=== PATIENT | female | born 1975 | race Caucasian/White ===

== ENCOUNTER 2020-06-29 10:53 | Emergency (ER) | payer SELFPAY ==
--- NOTE | ~2020-06-29 | XR_ITS ---
EXAMINATION: XR ankle LT min 3V, XR foot LT min 3V DATE: 06/29/2020 11:28 INDICATION: Left foot and ankle pain post injury TECHNIQUE: 1. Anteroposterior, mortise, additional oblique and lateral view of the left ankle were obtained. 2. Dorsoplantar, two oblique and lateral views of the left foot were obtained. COMPARISON: None. FINDINGS: Alignment of the foot and ankle is normal. No fracture or osteochondral lesion. Joint spaces are well maintained. No ankle joint effusion. Soft tissue swelling about the lateral malleolus. IMPRESSION: 1. No osseous abnormality at the left foot or ankle. Reviewed, dictated and finalized at location A. [place] RECEIVING CLERK IMPRESSION: 1. No osseous abnormality at the left foot or ankle.
[2020-06-29 10:59] VITALS: BP 146/87; PULSE 95; RESP 22; TEMP 36.8; O2SAT 100
[2020-06-29] MEDS: HYDROcodone/acetaminophen (*CRX) 5-325 MG TABLET 1 TAB PO (11:34)
--- NOTE | 2020-06-29 13:06 | ED.GENADULT ---
HPI - General Adult General Chief complaint: Extremity Injury, Lower <Alberto Kemp PA-C - Last Filed: 06/29/20 15:15> Stated complaint: Left ankle pain <Alberto Kemp PA-C - Last Filed: 06/29/20 15:15> Time Seen by Provider: 06/29/20 10:59 <Alberto Kemp PA-C - Last Filed: 06/29/20 15:15> Source: patient <ROSE MARIE Light Last Filed: 06/29/20 15:15> Mode of arrival: ambulatory <ROSE MARIE Light Last Filed: 06/29/20 15:15> Limitations: no limitations <ROSE MARIE Light Last Filed: 06/29/20 15:15> History of Present Illness HPI narrative: Patient presents with chief complaint of pain after inverting her left ankle while trying to carry a recliner across the line. Patient states that she does not have any other areas of pain but she has swelling to the lateral malleolus and pain to the dorsal aspect of her left ankle. Patient states she is able to wiggle her toes but it is very painful. Patient reports severe pain with weightbearing. Patient denies any other injuries. Patient reports allergy to Aleve but states she can take ibuprofen and other NSAIDs without issue. Patient denies chance of due to hysterectomy and tubal ligation <Alberto Kemp PA-C - Last Filed: 06/29/20 15:15> Related Data Allergies/adverse reactions: Allergies Allergy/AdvReac Type Severity Reaction Status Date / Time Sulfa (Sulfonamide Allergy Unknown Verified 06/29/20 11:02 Antibiotics) naproxen [From Aleve] AdvReac Other Verified 06/29/20 13:09 <ROSE MARIE Light Last Filed: 06/29/20 15:15> Review of Systems Review of Systems: Narrative: CONSTITUTIONAL: Denies fever, chills, or sweats. EYES: Denies visual changes, redness, or discharge. ENT: Denies rhinorrhea, congestion, sore throat, or otalgia. CARDIOVASCULAR: Denies chest pain, palpitations, or edema. RESPIRATORY: Denies cough or dyspnea. GASTROINTESTINAL: Denies abdominal pain, nausea, vomiting, or diarrhea. GENITOURINARY: Denies dysuria or hematuria. SKIN: Denies rash or itching. MUSCULOSKELETAL: Reports left ankle injury denies back pain or myalgia. NEUROLOGIC: Denies headache, numbness, dizziness, or weakness. PSYCHIATRIC: Denies anxiety or depression. <Alberto Kemp PA-C - Last Filed: 06/29/20 15:15> [facility] Social History Social History: Social History Gender identity (if verbalized by the patient): Female <Alberto Kemp PA-C - Last Filed: 06/29/20 15:15> Exam Narrative: Exam Narrative: GENERAL: Well-appearing, well-nourished, and in no acute distress. HEAD: Normocephalic, atraumatic. EYES: PERRLA and EOMI. NECK: Supple. No adenopathy or masses. CHEST: Clear to auscultation. No respiratory distress. No wheezes rales or rhonchi HEART: Regular rate and rhythm. No murmur heard. Normal peripheral pulses. ABDOMEN: Soft, nontender, nondistended, normal active bowel sounds. EXTREMITIES: Swelling to the lateral malleolus. Dorsalis pedis pulse intact. Patient reports significant pain with plantar dorsiflexion. Patient is able to wiggle toes and sensation and range of motion is intact. No open wound sites. No bleeding. No pain proximal to ankle. SKIN: Warm, dry, no rash. NEURO: No focal deficits. Alert and oriented x3. PSYCH: Normal mood and affect. <Alberto Kemp PA-C - Last Filed: 06/29/20 15:15> Course Vital Signs Vital signs: Vital Signs Temperature 98.3 F 06/29/20 10:59 Pulse Rate 95 06/29/20 10:59 Respiratory Rate 22 H 06/29/20 10:59 Blood Pressure 146/87 H 06/29/20 10:59 Pulse Oximetry 100 06/29/20 10:59 Temperature 97.8 F 06/29/20 13:17 Pulse Rate 71 06/29/20 13:17 Respiratory Rate 18 06/29/20 13:17 Blood Pressure 129/77 06/29/20 13:17 Pulse Oximetry 99 06/29/20 13:17 <Alberto Kemp PA-C - Last Filed: 06/29/20 15:15> Vital Signs Temperature 98.3 F 06/29/20 10:59 Pulse Rate 95 06/29/20 10:59 Respiratory R
[2020-06-29] MEDS: KETOROLAC 30 MG/ML VIAL (*BKC) IM (13:08)
[2020-06-29 13:17] VITALS: BP 129/77; PULSE 71; RESP 18; TEMP 36.6; O2SAT 99
== END 2020-06-29 13:37 | disposition home or self-care (01) ==
PROVIDERS: Emergency Provider General Practice; PCP Family Medicine
DX: S93.402A Sprain of unspecified ligament of left ankle, initial encounter (principal); X50.9XXA Other and unspecified overexertion or strenuous movements or postures, initial encounter
CPT/HCPCS: 73610; 73630; 96372; 99283; A9270; J1885